=== PATIENT | male | born 1930 | race Caucasian/White ===

== ENCOUNTER → 2017-11-27 | Outpatient (CLI) | payer OTHER ==
[~2017-11-27] MED LIST: ALBUAER9 INH; AMLO5TAB3 PO; CHOL100010 PO; CLOP1TAB5 PO; DIGO0.1219 PO; DOCU5LIQ PO; FERR1TAB62 PO; FINA5TAB4 PO; FLM4 PO; GLIM4TAB2 PO; INSUINJ4 SC; ISOS120T5 PO; LCHC12280 TOP; LEVO75TA5 PO; LSX20 PO; LXP10 PO; MAGN400T6 PO; METF1TAB53 PO; METO50TA16 PO; NTRGSL/4 UT; OMEP20CA9 PO; SITA50TA PO; WARF5TAB7 PO
--- NOTE | 2017-11-27 09:36 | DIAGNOSTIC IMAGING REPORT ---
CT OF THE ABDOMEN AND PELVIS WITHOUT CONTRAST CLINICAL HISTORY: Nephrolithiasis. Enlarged prostate. COMPARISON STUDY: CT of the abdomen and pelvis September 09, 2014. Abdominal series September 10, 2014. TECHNIQUE: Axial images of the abdomen and pelvis were obtained without IV contrast. Images were reviewed in the axial, sagittal, and coronal planes. A dose lowering technique was utilized adhering to the principles of ALARA. FINDINGS: The heart is moderately enlarged. There is extensive coronary artery calcification. A trace right pleural effusion with pleural thickening is unchanged and likely chronic. Evaluation of the abdomen and pelvis is suboptimal on this unenhanced exam. There is no biliary ductal dilatation status post cholecystectomy. Unenhanced images of liver, spleen, adrenal glands and pancreas are unremarkable with exception of pancreatic glandular atrophy. There is no pancreatic ductal dilatation. No pneumatosis, free air or portal venous gas is present. There is no evidence for a bowel obstruction. There is no evidence for acute appendicitis. There is hyperdense material within the appendix. No enlarged abdominal or pelvic lymph nodes are present. There are no suspicious osseous lesions. Moderate vascular calcification is present. Multiple bilateral renal calculi measure up to 8 mm. Calculus burden has mildly increased exam of September 09, 2014. A few bladder calculi measure up to 9 mm. No ureteral calculi are present. There is no hydronephrosis or hydroureter. Sensitivity for detection of urothelial lesions is diminished on this unenhanced exam. This moderate irregular bladder wall thickening with trabeculation. Prostate is mildly enlarged. IMPRESSION: 1. Bilateral nephrolithiasis and several bladder calculi. No ureteral calculi or hydronephrosis. 2. Moderate irregular bladder wall thickening with trabeculations which suggests chronic bladder outlet obstruction. Mild enlargement of the prostate. Electronically signed by: Jah Lassiter M.D. 11/27/2017 9:34 AM Dictated Date/Time: 11/27/2017 9:26 AM
== END | disposition home or self-care (01) ==
LOC: C.CTS 09:14
PROVIDERS: ATTEND Urology
DX: N20.0 Calculus of kidney (principal); N40.0 Benign prostatic hyperplasia without lower urinary tract symptoms; R33.9 Retention of urine, unspecified; N21.0 Calculus in bladder; N32.89 Other specified disorders of bladder

== ENCOUNTER 2017-12-05 16:43 | Emergency (ER) | payer OTHER ==
[~2017-12-05] VITALS: Ht 175.3 cm; Wt 69.2 kg
--- NOTE | 2017-12-05 16:56 | EMERGENCY ROOM VISIT NOTE ---
History Report prepared by Pippa: Kimberley Yañez Under the Supervision of: Dr. Bin Lyons M.D. First contact with patient: 16:46 Stated Complaint: HEMATURIA History of Present Illness The patient is a 87 year old male who presents to the Emergency Room with complaints of persistent bleeding with urination beginning 4 hours ago. His daughter notes the patient had a cystogram performed by Dr. Kong this afternoon, and began bleeding with urination after the procedure. She notes he had a little blood with urination directly after the procedure, and began having much more bleeding once he got home and urinated a second time. The patient denies any clots in the blood and his daughter notes the blood was bright red in color. He denies any pain. The daughter states the patient takes Warfarin for Afib, and his levels have been good recently. She notes he does not take aspirin. The daughter reports the patient had the cystogram due to concern over kidney stones. 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 Source of History: patient, family (daughter) Onset: 4 hours ago Position: pelvis (penis) Quality: other (bleeding) Timing: other (persistent) Modifying Factors (Worsening): urination Note: Denies: any pain, clots in blood Review of Systems See HPI for pertinent positives and negatives. A total of ten systems were reviewed and were otherwise negative. Past Medical & Surgical Medical Problems: (1) c (2) i (3) mechanica ventilation (4) mechanical ventilation (5) RT sided pleural effusion Family History Noncontributory due to advanced age Social History Smoking Status: Never Smoker Alcohol Use: none Drug Use: none Marital Status: Housing Status: lives with family Occupation Status: retired Current/Historical Medications Scheduled Amlodipine (Norvasc), 2.5 MG PO BID Cholecalciferol (Vitamin D), 1,000 INTER.UNIT PO QAM Clopidogrel Bisulfate (Plavix), 75 MG PO QAM Digoxin (Digox), 0.125 MG PO DAILY Escitalopram Oxalate (Escitalopram Oxalate), 5 MG PO DAILY Ferrous Sulfate (Ferrous Sulfate), 325 MG PO BID Finasteride (Proscar), 5 MG PO DAILY Glimepiride (Glimepiride), 4 MG PO QAM Insulin Glargine (Lantus Solostar Pen), 20 UNITS SC HS Isosorbide Mononitrate Ext Rel (Imdur Ext Rel), 120 MG PO DAILY Levothyroxine Sodium (Levothyroxine Sodium), 75 MCG PO DAILY Magnesium Oxide (Mag-Ox), 400 MG PO BID Metformin Hcl (Glucophage Ext Rel), 1,000 MG PO DAILY Metoprolol Tartrate (Lopressor) (Lopressor), 50 MG PO TID Omeprazole (Prilosec), 20 MG PO DAILYBB Sitagliptin Phosphate (Januvia), 50 MG PO DAILY Tamsulosin HCl (Tamsulosin HCl), 0.4 MG PO DAILY Warfarin Sod (Jantoven), 5 MG PO 5XWK Warfarin Sod (Jantoven), 2.5 MG PO 2XWK Scheduled PRN Albuterol Sulfate (Proventil Hfa), 2 PUFFS INH Q6H PRN for SOB/Wheezing Docusate Sodium (Docusate Sodium), 10 ML PO DAILY PRN for Constipation Furosemide (Furosemide), 20 MG PO DAILY PRN for Weight Gain - 3# Or More Lactic Acid (Ammonium Lactate Cream 12%), 1 APPLN TOP BID PRN for dry skin Nitroglycerin (Nitrostat), 0.4 MG UT UD PRN for Chest Pain Allergies Coded Allergies: Pioglitazone (Verified Allergy, Unknown, vision problem, 09/09/14) Physical Exam Vital Signs Date Time Temp Pulse Resp B/P (MAP) Pulse Ox O2 Delivery O2 Flow Rate FiO2 12/05/17 18:56 88 14 143/75 98 12/05/17 17:27 36.4 82 14 155/83 96 Room Air 12/05/17 17:16 87 12/05/17 17:02 97 Room Air Physical Exam GENERAL: Awake, alert, well-appearing, in no distress HENT: Normocephalic, atraumatic. Oropharynx unremarkable. EYES: Normal conjunctiva. Sclera non-icteric. NECK: Supple. No nuchal rigidity. RESPIRATORY: Clear to auscultation. No wheezes. Normal respiratory effort. CARDIAC: Normal rate. Irregular rhythm. Extremities warm and well perfused. GI: Soft, non-distended. No tenderness to palpation. No rebound or guarding. No masses. : No testicular or penile tenderness. Clotted blood at the urethra w/o active bleeding; phimosis. No other skin lesions noted. RECTAL: Deferred. MUSCULOSKELETAL: Atraumatic. Chest examination reveals no tenderness. There is no CVA tenderness to palpation. LOWER EXTREMITIES: RLE BKA with prosthetic. LLE without significant edema. NEURO: Normal sensorium. No sensory or motor deficits noted. No facial droop. SKIN: Warm and dry. No rash or jaundice noted. Medical Decision & Procedures Laboratory Results 12/05/17 17:10 Red Blood Count 3.68, Mean Corpuscular Volume 94.0, Mean Corpuscular Hemoglobin 32.3, Mean Corpuscular Hemoglobin Concent 34.4, Mean Platelet Volume 11.3, Neutrophils (%) (Auto) 76.6, Lymphocytes (%) (Auto) 12.2, Monocytes (%) (Auto) 10.6, Eosinophils (%) (Auto) 0.4, Basophils (%) (Auto) 0.1, Neutrophils # (Auto ) 6.87, Lymphocytes # (Auto) 1.10, Monocytes # (Auto) 0.95, Eosinophils # (Auto ) 0.04, Basophils # (Auto) 0.01 12/05/17 17:10 Test 12/05/17 17:10 12/05/17 18:35 White Blood Count 8.98 K/uL (4.8-10.8) Red Blood Count 3.68 M/uL (4.7-6.1) Hemoglobin 11.9 g/dL (14.0-18.0) Hematocrit 34.6 % (42-52) Mean Corpuscular Volume 94.0 fL (80-100) Mean Corpuscular Hemoglobin 32.3 pg (25-34) Mean Corpuscular Hemoglobin Concent 34.4 g/dl (32-36) Platelet Count 180 K/uL (130-400) Mean Platelet Volume 11.3 fL (7.4-10.4) Neutrophils (%) (Auto) 76.6 % Lymphocytes (%) (Auto) 12.2 % Monocytes (%) (Auto) 10.6 % Eosinophils (%) (Auto) 0.4 % Basophils (%) (Auto) 0.1 % Neutrophils # (Auto) 6.87 K/uL (1.4-6.5) Lymphocytes # (Auto) 1.10 K/uL (1.2-3.4) Monocytes # (Auto) 0.95 K/uL (0.11-0.59) Eosinophils # (Auto) 0.04 K/uL (0-0.5) Basophils # (Auto) 0.01 K/uL (0-0.2) RDW Standard Deviation 44.7 fL (36.4-46.3) RDW Coefficient of Variation 13.0 % (11.5-14.5) Immature Granulocyte % (Auto) 0.1 % Immature Granulocyte # (Auto) 0.01 K/uL (0.00-0.02) Prothrombin Time 27.1 SECONDS (9.0-12.0) Prothromb Time International Ratio 2.6 (0.9-1.1) Activated Partial Thromboplast Time 33.3 SECONDS (21.0-31.0) Partial Thromboplastin Ratio 1.3 Anion Gap 6.0 mmol/L (3-11) Est Creatinine Clear Calc Drug Dose 60.3 ml/min Estimated GFR () 91.0 Estimated GFR (Non- 78.5 BUN/Creatinine Ratio 23.9 (10-20) Calcium Level 8.9 mg/dl (8.5-10.1) Total Bilirubin 0.6 mg/dl (0.2-1) Direct Bilirubin 0.2 mg/dl (0-0.2) Aspartate Amino Transf (AST/SGOT) 22 U/L (15-37) Alanine Aminotransferase (ALT/SGPT) 31 U/L (12-78) Alkaline Phosphatase 82 U/L (45-117) Total Protein 6.6 gm/dl (6.4-8.2) Albumin 3.4 gm/dl (3.4-5.0) Urine Color RED Urine Appearance TURBID (CLEAR) Urine pH 7.0 (4.5-7.5) Urine Specific [place] 1.020 (1.000-1.030) Urine Protein 2+ (NEG) Urine Glucose (UA) 3+ (NEG) Urine Ketones NEG (NEG) Urine Occult Blood 3+ (NEG) Urine Nitrite NEG (NEG) Urine Bilirubin NEG (NEG) Urine Urobilinogen POS (NEG) Urine Leukocyte Esterase TRACE (NEG) Urine RBC >30 /hpf (0-4) Urine WBC 10-30 /hpf (0-5) Urine Epithelial Cells >30 /lpf (0-5) Urine Bacteria NEG (NEG) Laboratory results reviewed by me Procedure I performed a 72 mm bladder scan. ED Course 1645: The patient was evaluated in room C7. A complete history and physical exam was performed. 1747: I performed a 72 mm bladder scan. 1802: I reevaluated the patient. Discussed results and discharge instructions: he and his daughter verbalized understanding and agreement. The patient is ready for discharge. Medical Decision Etiologies such as tumor, post-cystoscopy related bleeding, kidney stone, infection, supra-therapeutic INR, as well as others entertained. Patient presents from home experience hematuria after cystoscopy earlier today. Has a history of kidney stones, phimosis, and balanitis. Did receive a dose of Bactrim prior to leaving the office today prophylactically. Noted to have viable prostate on exam. Is on Coumadin for atrial fibrillation and Plavix. Evidently after the procedure about 4 hours ago urinated once with some blood and then bright red blood at home per daughter. Bleeding stopped upon arrival. He denies any pain. States several weeks ago his blood levels were fine. Denies history of similar. Repeat blood count and INR completed here. Bladder scan completed to exclude retention. No evidence of this. Doubt this is acute infection or kidney stone. Likely postprocedural related to his anticoagulation at platelet use. Urinated here with some hematuria but emptying his bladder. Discussed option of [place] with patient and daughter and they wished to defer at this time. Did give return precautions. Feel that outpatient follow-up is reasonable at this time with return precautions for retention or prolonged significant bleeding. Patient and daughter were agreeable with this plan. Medication Reconcilliation Current Medication List: was personally reviewed by me Blood Pressure Screening Patient's blood pressure: Elevated blood pressure Blood pressure disposition: Referred to PCP Impression Primary Impression: Hematuria Scribe Attestation The scribe's documentation has been prepared under my direction and personally reviewed by me in its entirety. I confirm that the note above accurately reflects all work, treatment, procedures, and medical decision making performed by me. Departure Information Dispostion Home / Self-Care Referrals Kimberley Reid M.D. (PCP) Forms HOME CARE DOCUMENTATION FORM, IMPORTANT VISIT INFORMATION, WORK / SCHOOL INSTRUCTIONS Additional Instructions If you have concerns about retaining urine please return for reevaluation. Due to the procedure and your anticoagulation you are bleeding when you urinate. If you feel that this bleeding will not stop or he began to experience symptoms such as weakness lightheadedness or fatigue please return for reevaluation to make sure you have not lost much blood. Bleeding with urination should stop fairly shortly after. Would recommend maintaining close contact with urology over the next day. If at any time you have concerns again please feel free to return here for reevaluation. Problem Qualifiers Primary Impression: Hematuria Hematuria type: gross Qualified Codes: R31.0 - Gross hematuria
[2017-12-05 17:02] VITALS: O2SAT 97
[2017-12-05 17:24] LABS: BASO % 0.1 %; BASO ABS # 0.01 K/uL (0-0.2); EOS % 0.4 %; EOS ABS # 0.04 K/uL (0-0.5); HEMATOCRIT 34.6 % (42-52); HEMOGLOBIN 11.9 g/dL (14.0-18.0); IG# 0.01 K/uL (0.00-0.02); LYMPH % 12.2 %; MEAN CORPUSCULAR HEMOGLOBIN 32.3 pg (25-34); MEAN CORPUSCULAR HGB CONC 34.4 g/dl (32-36); MEAN PLATELET VOLUME 11.3 fL (7.4-10.4); MONO % 10.6 %; MONO ABS # 0.95 K/uL (0.11-0.59); NEUT % 76.6 %; NEUT ABS # 6.87 K/uL (1.4-6.5); PLATELET COUNT 180 K/uL (130-400); RED CELL DISTRIBUTION WIDTH SD 44.7 fL (36.4-46.3); WHITE BLOOD COUNT 8.98 K/uL (4.8-10.8)
[2017-12-05 17:27] VITALS: TEMP 36.4; Ht 175.3 cm; Wt 69.2 kg
[2017-12-05 17:32] LABS: INR 2.6 (0.9-1.1); PTT PATIENT 33.3 SECONDS (21.0-31.0)
[2017-12-05 17:45] LABS: ALBUMIN 3.4 gm/dl (3.4-5.0); CALCIUM 8.9 mg/dl (8.5-10.1); CREATININE 0.86 mg/dl (0.60-1.40); POTASSIUM 4.2 mmol/L (3.5-5.1); TOTAL PROTEIN 6.6 gm/dl (6.4-8.2)
[2017-12-05 18:56] VITALS: BP 143/75; PULSE 88; O2SAT 98
== END 2017-12-05 18:56 | disposition home or self-care (01) ==
LOC: EDBD 16:43 → C.EDC 16:44
DX: R31.9 Hematuria, unspecified (principal); R03.0 Elevated blood-pressure reading, without diagnosis of hypertension; I48.91 Unspecified atrial fibrillation; Z98.890 Other specified postprocedural states; Z87.442 Personal history of urinary calculi; Z79.01 Long term (current) use of anticoagulants; Z79.4 Long term (current) use of insulin; Z79.899 Other long term (current) drug therapy; Z88.8 Allergy status to other drugs, medicaments and biological substances

== ENCOUNTER 2018-11-14 10:28 | Inpatient (IN) ==
--- OUTSIDE RECORDS SUMMARY | 2018-11-14 10:31 | External Medical Summary | Continuity of Care Document ---
:1930 Author Name Manny Spencer, Provider Address Unavailable Unavailable , Care Team Providers Name Role Phone WisamgagandeepAna lopez PA-C Unavailable [email or web address] Clau Spencer, Anthony Minor Unavailable [email or web address] Unavailable Unavailable Unavailable Unavailable Assessments Assessed Problems:Former smoker Problems Anxiety disorder (300.00) (F41.9) Chronic respiratory failure (518.83) (J96.10) Arthritis (716.90) (M19.90) Diabetes mellitus (250.00) (E11.9) Type 2 diabetes mellitus (250.00) (E11.9) Primary pulmonary hypertension (416.0) (I27.0) CAD (coronary artery disease) (414.00) (I25.10) Cath Stent Placement Hypercholesterolemia (272.0) (E78.00) Ischemic cardiomyopathy (414.8) (I25.5) Permanent atrial fibrillation (427.31) (I48.2) Hypertension (401.9) (I10) Calculus of kidney (592.0) (N20.0) Retention of urine (788.20) (R33.9) Nocturia (788.43) (R35.1) Tinea (110.9) (B35.9) Enlarged prostate without lower urinary tract symptoms (luts ) (600.00) (N40.0) Former smoker (V15.82) (Z87.891) Non-ST elevation (NSTEMI) myocardial infarction (410.70) (I2 1.4) Phimosis (605) (N47.1) Allergies and Adverse Reactions Actos TABS (Allergy) Medications Glimepiride 4 MG Oral Tablet; TAKE 1 TABLET TWICE DAILY. Refills: 0 Levothyroxine Sodium 75 MCG Oral Tablet; TAKE 1 TABLET DAILY . Refills: 0 Digoxin 125 MCG Oral Tablet; Take one tablet daily Real Olguin Start: 26-Oct-2010 Quantity: 30 Refills: 6 Metoprolol Succinate ER 50 MG Oral Table t Extended Release 24 Hour; Take 1 tablet daily Tj Olguin Start: 24-Jan-2016 Quantity: 90 Refills: 3 metFORMIN HCl ER (OSM) 500 MG Oral Table t Extended Release 24 Hour; take 1 tablet by mouth once daily Refills: 0 Lexapro 10 MG Oral Tablet; take 1 tablet by mouth once daily Start: 16-Nov-2011 Refills: 0 Lisinopril 2.5 MG Oral Tablet; TAKE 1 TABLET DAILY. Quantity: 90 Refills: 3 Iron 325 (65 Fe) MG Oral Tablet; TAKE 1 TABLET DAILY DIRE CTED. Refills: 0 Finasteride 5 MG Oral Tablet; TAKE 1 TABLET DAILY. Quantity: 90 Refills: 0 Tamsulosin HCl - 0.4 MG Oral Capsule; TAKE 1 CAPSULE Daily Quantity: 90 Refills: 3 Warfarin Sodium 5 MG Oral Tablet; TAKE DIRECTED. Refills: 0 Mag-Ox 400 TABS; TAKE 1 TABLET DAILY. Refills: 0 Januvia 50 MG Oral Tablet; TAKE 1 TABLET DAILY. LEANDRO Callahan Start: 07-Nov-2011 Quantity: 30 Refills: 5 Vitamin D 1000 UNIT Oral Tablet; TAKE 1 TABLET DAILY. Refills: 0 Lipitor 80 MG Oral Tablet; TAKE 1 TABLET DAILY. Quantity: 90 Refills: 3 Plavix 75 MG Oral Tablet; TAKE 1 TABLET DAILY. Refills: 0 Omeprazole 20 MG Oral Capsule Delayed Release; TAKE 1 CAPSULE Daily LEADNRO Callahan Start: 23-Jan-2011 Quantity: 30 Refills: 5 Procedures History of Cholecystectomy Status: Compl eted History of Tonsillectomy Status: Complet ed History of Thoracoscopy (Therapeutic) With Pleurodesis Status: Completed History of Amputation Of Leg Below Knee Status: Completed Cath Stent Placement Immunizations Influenza On: 2010 Pneumococcal polysaccharide vaccine, 23 valent On: 2010 Td On: 2010 Family History Father Family history of Father At Age ___ Status: Active Mother Family history of Mother At Age ___ Status: Active Sister Family history of Sister At Age ___ Status: Active Unknown Family Member Family history of Cancer Status: Active Comments: Famil y History Family history of Diabetes Mellitus (V18.0) Status: Active Comments: Family History Family history of Father At Age ___ Status: Active Comments: Family History Social History - Smoking Status Former smoker Interventions Labs/Procedures/ImagingTobacco Use Screening; Done: 20 Mar 2018 Discussion/SummaryThe patient is stable from a cardiovascular standpoint. Fortunately, his coronary artery disease remains quiescent his current medical regimen. No changes were made today.Duration of the visit was greater than 25 minutes. More than 50 percent of the time was spent in education and counseling. Plan of Treatment Planned Observations Planned Goals not documented Results No Known Results Results not documented Encounters Appointment; Aaron Kong M.D. 05-Dec-2017 12:45 Encounter Diagnosis: Problem not documented Appointment; Urology, Room 8 05-Dec-2017 12:30 Encounter Diagnosis: Problem not documented Appointment; Aaron Kong M.D. 06-Nov-2017 10:00 Encounter Diagnosis: Problem not documented Appointment; Anthony Olguin M.D. 29-Aug-2017 11:30 Encounter Diagnosis: Problem not documented Appointment; Anthony Olguin M.D. 27-Feb-2017 11:30 Encounter Diagnosis: Problem not documented Appointment; Anthony Olguin M.D. 20-Mar-2018 13:30 Encounter Diagnosis: Problem not documented
[2018-11-14 10:57] LABS: Basophils # (auto) 0.01 K/uL (0-0.2); Basophils % (auto) 0.1 %; Hematocrit (blood only) 35.8 % (42-52); Immature Granulocytes # (auto) 0.02 K/uL (0.00-0.02); Immature Granulocytes % (auto) 0.2 %; Lymphocytes # (auto) 0.72 K/uL (1.2-3.4); Lymphocytes % (auto) 7.2 %; Mean Corpuscular Hgb Conc 33.5 g/dL (32-36); Mean Platelet Volume 11.8 fL (7.4-10.4); Monocytes # (auto) 0.64 K/uL (0.11-0.59); Monocytes % (auto) 6.4 %; Neutrophils # (auto) 8.67 K/uL (1.4-6.5); Neutrophils % (auto) 86.1 %; Platelet Count 181 K/uL (130-400); RDW Coefficient of Variation 13.4 % (11.5-14.5); RDW Standard Deviation 46.4 fL (36.4-46.3); Red Blood Count 3.81 M/uL (4.7-6.1); White Blood Count 10.06 K/uL (4.8-10.8)
[2018-11-14 11:07] LABS: INR 2.1 (0.9-1.1); Partial Thromboplastin Ratio 1.1; Partial Thromboplastin Time 30.4 Seconds (21.0-31.0); Prothrombin Time 20.6 Seconds (9.0-12.0)
[2018-11-14 11:23] LABS: Alanine Aminotransferase 33 U/L (12-78); Albumin Level 3.5 gm/dl (3.4-5.0); Aspartate Aminotransferase 26 U/L (15-37); BUN Creatinine Ratio 26.7 (10-20); Blood Urea Nitrogen 19 mg/dl (7-18); Carbon Dioxide 30 mmol/L (21-32); Chloride 104 mmol/L (98-107); Creatinine Clr Calc Pharmacy 59.8 ml/min; Est GFR (African American) 97.8; Est GFR (Non-African American) 84.4; Glucose 155 mg/dl (70-99); Potassium 4.6 mmol/L (3.5-5.1); Sodium 141 mmol/L (136-145)
[2018-11-14 11:28] LABS: Albumin Globulin Ratio 1.2 (0.9-2); Alkaline Phosphatase 96 U/L (45-117); Bilirubin,Total 0.6 mg/dl (0.2-1); Globulin 2.9 gm/dl (2.5-4.0); Total Protein 6.4 gm/dl (6.4-8.2); Troponin I < 0.015 ng/ml (0-0.045)
[2018-11-14] MEDS ORDERED: ALBUT/IPRATROP 3MG/0.5MG NEB 3 ML VIAL NEB STA ×2 (11:38→15:42)
--- NOTE | 2018-11-14 11:53 | XRay Report ---
XR chest 1V portable CLINICAL HISTORY: Shortness of breath. COMPARISON STUDY: Chest radiograph October 24, 2014. FINDINGS: Old right-sided rib deformities are noted. There is no pneumothorax. There may be a trace r ight pleural effusion. This may be chronic. Right hemithorax volume loss is unchanged. Postoperative findings within the right lung apex are noted. Cardiomegaly is noted without evidence for pulmonary e moe. IMPRESSION: No acute cardiopulmonary findings. No change in appearance of the chest. Trace right ple ural effusion which may be chronic. Electronically signed by: Jah Lassiter M.D. 11/14/2018 11:52 AM
[2018-11-14] MEDS ORDERED: OPTIRAY 320 125ml IV PRN (13:26)
--- NOTE | 2018-11-14 13:41 | CT Scan Report ---
CT ANGIOGRAM OF THE CHEST CLINICAL HISTORY: Dyspnea. COMPARISON STUDY: Chest x-ray dated 11/14/2018. Chest CT dated 09/09/2014. TECHNIQUE: Following the IV administration of 79 cc of Optiray 320, CT angiogram of the chest was per formed from the upper abdomen to the thoracic inlet utilizing the pulmonary embolus protocol. Images are reviewed in the axial, sagittal, and coronal planes. 3-D MIPS images are created and assessed. IV contrast was administered without complication. A dose lowering technique was utilized adhering to the principles of ALARA. The examination is degraded by streak artifact from the arms which could not elevated above the chest. CT DOSE: 330.40 mGy.cm FINDINGS: Thyroid: Imaged portions of the thyroid gland are normal in size and attenuation. Thoracic aorta: There is atherosclerotic calcification of the thoracic aorta, which is normal in [place] and demonstrates standard 3-vessel arch anatomy. No dissection is seen. Pulmonary vasculature: The pulmonary trunk is normal in caliber. There are no filling defects identif ied in main, lobar, or segmental pulmonary branches to suggest pulmonary embolus. Heart: The heart is enlarged and without pericardial effusion. Acquired arteries are densely calcifie d. Lungs and pleural spaces: There is hyperdense material identified throughout the right pleural space with associated pleural thickening, likely related to previous pleurodesis. Postoperative change and scarring is seen at the right apex and the anterior right lung base. There is diffuse subpleural reti culation. No airspace consolidation or pleural effusion is identified. Minimal secretions are noted i n the upper trachea. The trachea and central airways are otherwise clear. Mediastinum: There is no mediastinal lymphadenopathy. Kimmy: Clear. Axillae: There is no axillary lymphadenopathy. Upper abdomen: Cholecystectomy clips are noted. There is mild intrahepatic biliary ductal dilatation. Skeletal structures: The skeletal structures are osteopenic. 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 Arthritic change is seen in the shoulders. There are healed rig ht-sided rib fractures. No lytic or blastic bony lesions are seen. Soft tissues: Gynecomastia is noted. IMPRESSION: 1. There is no evidence of pulmonary embolus in the main, lobar, or segmental pulmonary arteries. 2. There is no airspace consolidation or pleural effusion. 3. Cardiomegaly. 4. Chronic parenchymal changes as above. Electronically signed by: Pawan Ryan M.D. 11/14/2018 1:39 PM
[2018-11-14] MEDS ORDERED: METOPROLOL SUCC 50MG EXT REL TAB PO STA (15:27)
[2018-11-14] MEDS ORDERED: methylPREDNISolone 125 MG/2 ML VIAL IV STA (15:42)
[2018-11-14] MEDS ORDERED: DOXYCYCLINE HYCLATE 100 MG in DEXTROSE 5% 100 ML IV STA (15:42)
--- NOTE | 2018-11-14 15:49 | Emergency Department Note ---
Entered by Lorna Bardales acting as a scribe for Memo Zamudio MD History of Present Illness General Chief complaint: Shortness of Breath/Dyspnea Stated complaint: chest pain Time Seen by Provider: 11/14/18 11:28 Source: patient and family Mode of arrival: EMS Limitations: no limitations History of Present Illness Onset (ago): day(s) 2 Location: chest Radiation: non-radiation Pain Consistency: + constant Relieved By: + none Exacerbated By: + movement (and exertion) Associated symptoms: + other (-urinary symptoms); no chest pain Treatments prior to arrival: none The patient is an 89 year old male who presents to the ED with complaints of shortness of breath since last night. He is accompanied by his daughter. She states that 2 days ago, "he was fine". Exertion and movement worsens his breathing. She denies him having any history of asthma or COPD. He is not normally on Oxygen. He does take daily Coumadin. The patient denies any recent chest pain or urinary symptoms. His daughter states he seems to have a lot of mucous in his chest. Home Medications Home Medications Medication Instructions Recorded Confirmed Type atorvastatin 80 mg PO DAILY 11/14/18 11/14/18 History cholecalciferol (vitamin D3) 1,000 unit PO DAILY 11/14/18 11/14/18 History [Vitamin D3] clopidogrel 75 mg PO QAM 11/14/18 11/14/18 History digoxin [Digitek] 125 mcg PO DAILY 11/14/18 11/14/18 History ferrous sulfate [iron] 325 mg PO DAILY 11/14/18 11/14/18 History finasteride 5 mg PO QAM 11/14/18 11/14/18 History glimepiride 8 mg PO QAM 11/14/18 11/14/18 History levothyroxine 75 mcg PO QAM 11/14/18 11/14/18 History linagliptin [Tradjenta] 5 mg PO DAILY 11/14/18 11/14/18 History lisinopril 2.5 mg PO DAILY 11/14/18 11/14/18 History magnesium oxide 400 mg PO DAILY 11/14/18 11/14/18 History metformin 500 mg PO DAILY 11/14/18 11/14/18 History metoprolol succinate 50 mg PO DAILY 11/14/18 11/14/18 History tamsulosin 0.4 mg PO DAILY 11/14/18 11/14/18 History warfarin [Jantoven] 2.5 mg PO SUTUTHSA 11/14/18 11/14/18 History warfarin [Jantoven] 5 mg PO MOWEFR 11/14/18 11/14/18 History Allergies Allergy/AdvReac Type Severity Reaction Status Date / Time pioglitazone Allergy Unknown vision Verified 11/14/18 11:24 problem Past Med/Surg History Medical History Hx of right BKA (Chronic) PAD (peripheral artery disease) (Chronic) Hypertension (Chronic) CAD (coronary artery disease) (Chronic) 08/2009-RCA stent 10/2014-LAD stent Chronic atrial fibrillation (Chronic) Ischemic cardiomyopathy (Chronic) Hypothyroidism (Chronic) DM type 2 (diabetes mellitus, type 2) (Chronic) Surgical History History of thoracic surgery (Chronic) S/P VATS with talc pleurodesis S/P cholecystectomy (Chronic) History of cataract surgery (Chronic) Family History Mother Diabetes Social History Preferred Language: Vietnamese Communication Ability: Effective Beliefs That Will Affect Care: None Current Living Situation: Family Current Living Situation Comment: Lives with and daughter Other Information That Helps Us Care for You: No Feels Safe at Home: No Is there a partner from a previous relationship who is making you feel unsafe now?: No Any Concerns about Your Family Situation: No Would You Like to Speak to Someone About Your Situation: No Smoking Status: Former smoker Hx Alcohol Use: No Hx Substance Use: No Review of Systems See HPI for pertinent positives & negatives. and A total of 10 systems reviewed and were otherwise negative Physical Exam Vital Signs Vital Signs - 24 hr 11/14/18 10:33 11/14/18 10:37 11/14/18 11:03 Temperature 37.0 C Temperature Source Oral Sepsis Recent Fever Within 48 Hours No Sepsis New/Unexplained Change in Mental Status No Sepsis Action Taken by Nursing No Action Required Pulse Rate 125 H Pulse Rate [Exercises] Pulse Rate [Left Finger] Pulse Rhythm Regular Pulse Rhythm [Left Finger] Pulse Strength Normal Pulse Strength [Left Finger] Respiratory Rate 30 H Respiratory Rate [Exercises] Respiratory Effort / Characteristics Labored Respiratory Depth Normal Respiratory Pattern Irregular Blood Pressure 155/89 H Blood Pressure [Right Arm] Blood Pressure Mean 111 Blood Pressure Mean [Right Arm] Blood Pressure Position Sitting Blood Pressure Position [Right Arm] Pulse Oximetry 98 100 Pulse Oximetry [Exercises] Oxygen Delivery Method Room Air Nasal Cannula Room Air Oxygen Flow Rate 2 11/14/18 12:11 11/14/18 12:15 11/14/18 14:34 Temperature Temperature Source Sepsis Recent Fever Within 48 Hours Sepsis New/Unexplained Change in Mental Status Sepsis Action Taken by Nursing Pulse Rate Pulse Rate [Exercises] Pulse Rate [Left Finger] 110 H 110 H 105 H Pulse Rhythm Pulse Rhythm [Left Finger] Regular Pulse Strength Pulse Strength [Left Finger] Normal Respiratory Rate 10 L 20 22 Respiratory Rate [Exercises] Respiratory Effort / Characteristics Non-Labored Spontaneous Non-Labored Spontaneous Non-Labored Spontaneous Respiratory Depth Normal Normal Respiratory Pattern Regular Blood Pressure Blood Pressure [Right Arm] 101/67 152/85 H Blood Pressure Mean Blood Pressure Mean [Right Arm] 78 107 Blood Pressure Position Blood Pressure Position [Right Arm] Lying Lying Pulse Oximetry 99 98 100 Pulse Oximetry [Exercises] Oxygen Delivery Method Nasal Cannula Nebulizer Nasal Cannula Oxygen Flow Rate 4 2 11/14/18 15:27 Temperature Temperature Source Sepsis Recent Fever Within 48 Hours Sepsis New/Unexplained Change in Mental Status Sepsis Action Taken by Nursing Pulse Rate Pulse Rate [Exercises] 155 H Pulse Rate [Left Finger] Pulse Rhythm Pulse Rhythm [Left Finger] Pulse Strength Pulse Strength [Left Finger] Respiratory Rate Respiratory Rate [Exercises] 28 H Respiratory Effort / Characteristics Respiratory Depth Respiratory Pattern Blood Pressure Blood Pressure [Right Arm] Blood Pressure Mean Blood Pressure Mean [Right Arm] Blood Pressure Position Blood Pressure Position [Right Arm] Pulse Oximetry Pulse Oximetry [Exercises] 75 L Oxygen Delivery Method Room Air Oxygen Flow Rate GENERAL: Awake, alert, fatigued-appearing, in no distress HENT: Normocephalic, atraumatic. Oropharynx with dry mucous membranes and otherwise unremarkable. EYES: Normal conjunctiva. Sclera non-icteric. NECK: Supple. No nuchal rigidity. FROM. No JVD. RESPIRATORY: Diminished breath sounds throughout with scant wheeze. CARDIAC: Tachycardic rate, irregular rhythm. Extremities warm and well perfused. Pulses equal. ABDOMEN: Soft, non-distended. No tenderness to palpation. No rebound or guarding. No masses. RECTAL: Deferred. MUSCULOSKELETAL: Chest examination reveals no tenderness. The back is symmetrical on inspection without obvious abnormality. There is no CVA tenderness to palpation. No joint edema. LOWER EXTREMITIES: Right leg BKA. No edema. No discoloration. NEURO: Normal sensorium. No sensory or motor deficits noted. SKIN: No rash or jaundice noted. Course 1137: The patient was evaluated in room C9 and a complete history and physical were performed. 1315: I reevaluated the patient. His lung sounds are better and he is resting comfortably. 1356: I discussed his results and my recommendation he remain in the hospital for further evaluation and agreement and he verbalized complete understanding and agreement. 1449: I discussed the patients case [facility] The patient will be further evaluated. Consultations Consultation #1: I discussed the patients case [facility] The patient will be further evaluated. Time: 14:49 Administered Medications Digoxin (Lanoxin) 0.125 mg PO DAILY@1600 COUNT INCLUDES THE [facility] Stop: 12/14/18 19:29 Last Admin: 11/14/18 20:33 Dose: 0.125 mg Documented by: [id number] Insulin Aspart (Novolog Flexpen) 0 units SC ACHS COUNT INCLUDES THE [facility] Stop: 12/14/18 20:59 Last Admin: 11/14/18 20:37 Dose: 5 units Documented by: [id number] Cosigned by: [id number] Warfarin Sodium (Coumadin) 2.5 mg PO SuTuThSa@1600 COUNT INCLUDES THE [facility] Stop: 12/14/18 19:59 Last Admin: 11/14/18 20:34 Dose: 2.5 mg Documented by: [id number] Discontinued Medications Albuterol (Duoneb) 3 ml NEB NOW STA Stop: 11/14/18 11:39 Last Admin: 11/14/18 12:11 Dose: 3 ml Documented by: [id number] Doxycycline Hyclate 100 mg/ (Dextrose) 110 mls @ 50 mls/hr IV NOW STA Stop: 11/14/18 17:53 Last Infusion: 11/14/18 23:21 Dose: 0 mls/hr Documented by: [id number] Admin: 11/14/18 16:43 Dose: 50 mls/hr Documented by: [id number] Sodium Chloride (Nss 1000ml) 500 mls @ 999 mls/hr IV .Q31M ONE Stop: 11/14/18 16:35 Last Infusion: 11/14/18 18:24 Dose: 0 mls/hr Documented by: [id number] Admin: 11/14/18 16:43 Dose: 999 mls/hr Documented by: [id number] Insulin Glargine (Lantus Solostar Pen) 10 units SQ NOW STA Stop: 11/15/18 00:02 Last Admin: 11/15/18 00:22 Dose: 10 units Documented by: [id number] Cosigned by: [id number] Ioversol (Optiray 320 125ml) 79 ml IV ONCE PRN PRN Reason: Interaction Checking Stop: 11/18/18 13:25 Last Admin: 11/14/18 13:26 Dose: 79 ml Documented by: [id number] Methylprednisolone (Solumedrol) 125 mg IV NOW STA Stop: 11/14/18 15:43 Last Admin: 11/14/18 16:43 Dose: 125 mg Documented by: [id number] Metoprolol Succinate (Toprol Xl) 50 mg PO NOW STA Stop: 11/14/18 15:28 Last Admin: 11/14/18 15:43 Dose: 50 mg Documented by: [id number] Medical Decision Making Differential Diagnosis Differential diagnoses includes but is not limited to pneumonia, bronchitis, COPD/Asthma exacerbation, pneumothorax, pulmonary embolism, congestive heart failure, acute coronary syndrome. Medical Records Attestation: I reviewed the patient's medical records. Home Medications Current Medication List: was personally reviewed by me Laboratory Data Attestation: I reviewed the patient's lab results. Result diagrams: 11/14/18 10:42 11/14/18 10:42 Lab Results 11/14/18 11/14/18 11/14/18 Range/Units 10:42 10:42 10:42 WBC 10.06 (4.8-10.8) K/uL RBC 3.81 L (4.7-6.1) M/uL Hgb 12.0 L (14.0-18.0) g/dL Hct 35.8 L (42-52) % MCV 94.0 (80-100) fL MCH 31.5 (25-34) pg MCHC 33.5 (32-36) g/dL RDW Std Deviation 46.4 H (36.4-46.3) fL RDW Coeff of Kelvin 13.4 (11.5-14.5) % Plt Count 181 (130-400) K/uL MPV 11.8 H (7.4-10.4) fL Immature Gran % (Auto) 0.2 % Neut % (Auto) 86.1 % Lymph % (Auto) 7.2 % [place]iebach % (Auto) 6.4 % Eos % (Auto) 0.0 % Baso % (Auto) 0.1 % Immature Gran # (Auto) 0.02 (0.00-0.02) K/uL Neut # (Auto) 8.67 H (1.4-6.5) K/uL Lymph # (Auto) 0.72 L (1.2-3.4) K/uL [place] # (Auto) 0.64 H (0.11-0.59) K/uL Eos # (Auto) 0.00 (0-0.5) K/uL Baso # (Auto) 0.01 (0-0.2) K/uL PT 20.6 H (9.0-12.0) Seconds INR 2.1 H (0.9-1.1) APTT 30.4 (21.0-31.0) Seconds PTT Ratio 1.1 Sodium 141 (136-145) mmol/L Potassium 4.6 (3.5-5.1) mmol/L Chloride 104 (98-107) mmol/L Carbon Dioxide 30 (21-32) mmol/L Anion Gap 7.0 (3-11) BUN 19 H (7-18) mg/dl Creatinine 0.71 (0.6-1.4) mg/dl Est Cr Clr Drug Dosing 59.8 ml/min Est GFR ( Amer) 97.8 Est GFR (Non-Af Amer) 84.4 BUN/Creatinine Ratio 26.7 H (10-20) Glucose 155 H (70-99) mg/dl Calcium 9.0 (8.5-10.1) mg/dl Total Bilirubin 0.6 (0.2-1) mg/dl AST 26 (15-37) U/L ALT 33 (12-78) U/L Alkaline Phosphatase 96 (45-117) U/L Troponin I < 0.015 (0-0.045) ng/ml NT-Pro-B Natriuret Pep (0-1800) pg/ml Total Protein 6.4 (6.4-8.2) gm/dl Albumin 3.5 (3.4-5.0) gm/dl Globulin 2.9 (2.5-4.0) gm/dl Albumin/Globulin Ratio 1.2 (0.9-2) Urine Color Urine Appearance (Clear) Urine pH (4.5-7.5) Ur Specific Wright (1.000-1.030) Urine Protein (Negative) Urine Glucose (UA) (Negative) Urine Ketones (Negative) Urine Blood (Negative) Urine Nitrite (Negative) Urine Bilirubin (Negative) Urine Urobilinogen (Negative) Ur Leukocyte Esterase (Negative) Urine WBC (Auto) (0-5) /hpf Urine RBC (Auto) (0-4) /hpf U Hyaline Cast (Auto) (0-5) /lpf U Epithel Cells (Auto) (0-5) /lpf Urine Bacteria (Auto) (Negative) Urine Yeast (None Prsent) 11/14/18 11/14/18 Range/Units 10:42 16:10 WBC (4.8-10.8) K/uL RBC (4.7-6.1) M/uL Hgb (14.0-18.0) g/dL Hct (42-52) % MCV (80-100) fL MCH (25-34) pg MCHC (32-36) g/dL RDW Std Deviation (36.4-46.3) fL RDW Coeff of Kelvin (11.5-14.5) % Plt Count (130-400) K/uL MPV (7.4-10.4) fL Immature Gran % (Auto) % Neut % (Auto) % Lymph % (Auto) % Ziebach % (Auto) % Eos % (Auto) % Baso % (Auto) % Immature Gran # (Auto) (0.00-0.02) K/uL Neut # (Auto) (1.4-6.5) K/uL Lymph # (Auto) (1.2-3.4) K/uL [place] # (Auto) (0.11-0.59) K/uL Eos # (Auto) (0-0.5) K/uL Baso # (Auto) (0-0.2) K/uL PT (9.0-12.0) Seconds INR (0.9-1.1) APTT (21.0-31.0) Seconds PTT Ratio Sodium (136-145) mmol/L Potassium (3.5-5.1) mmol/L Chloride (98-107) mmol/L Carbon Dioxide (21-32) mmol/L Anion Gap (3-11) BUN (7-18) mg/dl Creatinine (0.6-1.4) mg/dl Est Cr Clr Drug Dosing ml/min Est GFR ( Amer) Est GFR (Non-Af Amer) BUN/Creatinine Ratio (10-20) Glucose (70-99) mg/dl Calcium (8.5-10.1) mg/dl Total Bilirubin (0.2-1) mg/dl AST (15-37) U/L ALT (12-78) U/L Alkaline Phosphatase (45-117) U/L Troponin I (0-0.045) ng/ml NT-Pro-B Natriuret Pep 1855 H (0-1800) pg/ml Total Protein (6.4-8.2) gm/dl Albumin (3.4-5.0) gm/dl Globulin (2.5-4.0) gm/dl Albumin/Globulin Ratio (0.9-2) Urine Color Yellow Urine Appearance Turbid A (Clear) Urine pH 6.0 (4.5-7.5) Ur Specific Wright > 1.045 H (1.000-1.030) Urine Protein Negative (Negative) Urine Glucose (UA) Negative (Negative) Urine Ketones 1+ H (Negative) Urine Blood 1+ H (Negative) Urine Nitrite Negative (Negative) Urine Bilirubin Negative (Negative) Urine Urobilinogen Negative (Negative) Ur Leukocyte Esterase 3+ H (Negative) Urine WBC (Auto) >30 H (0-5) /hpf Urine RBC (Auto) 5-10 H (0-4) /hpf U Hyaline Cast (Auto) 0 (0-5) /lpf U Epithel Cells (Auto) 10-20 H (0-5) /lpf Urine Bacteria (Auto) Negative (Negative) Urine Yeast Present A (None Prsent) Imaging Data Radiologist's Impression: Radiology results as stated below per my review and the radiologist's interpretation: XR chest 1V portable CLINICAL HISTORY: Shortness of breath. COMPARISON STUDY: Chest radiograph October 24, 2014. FINDINGS: Old right-sided rib deformities are noted. There is no pneumothorax. There may be a trace right pleural effusion. This may be chronic. Right hemithorax volume loss is unchanged. Postoperative findings within the right lung apex are noted. Cardiomegaly is noted without evidence for pulmonary edema. IMPRESSION: No acute cardiopulmonary findings. No change in appearance of the chest. Trace right pleural effusion which may be chronic. Electronically signed by: Jah Lassiter M.D. 11/14/2018 11:[address] ANGIOGRAM OF THE CHEST CLINICAL HISTORY: Dyspnea. COMPARISON STUDY: Chest x-ray dated 11/14/2018. Chest CT dated 09/09/2014. TECHNIQUE: Following the IV administration of 79 cc of Optiray 320, CT angiogram of the chest was performed from the upper abdomen to the thoracic inlet utilizing the pulmonary embolus protocol. Images are reviewed in the axial, sagittal, and coronal planes. 3-D MIPS images are created and assessed. IV contrast was administered without complication. A dose lowering technique was utilized adhering to the principles of ALARA. The examination is degraded by s treak artifact from the arms which could not elevated above the chest. CT DOSE: 330.40 mGy.cm FINDINGS: Thyroid: Imaged portions of the thyroid gland are normal in size and attenuation. Thoracic aorta: There is atherosclerotic calcification of the thoracic aorta, which is normal in caliber and demonstrates standard 3-vessel arch anatomy. No dissection is seen. Pulmonary vasculature: The pulmonary trunk is normal in caliber. There are no filling defects identified in main, lobar, or segmental pulmonary branches to suggest pulmonary embolus. Heart: The heart is enlarged and without pericardial effusion. Acquired arteries are densely calcified. Lungs and pleural spaces: There is hyperdense material identified throughout the right pleural space with associated pleural thickening, likely related to previous pleurodesis. Postoperative change and scarring is seen at the right apex and the anterior right lung base. There is diffuse subpleural reticulation. No airspace consolidation or pleural effusion is identified. Minimal secretions are noted in the upper trachea. The trachea and central airways are otherwise clear. Mediastinum: There is no mediastinal lymphadenopathy. Kimmy: Clear. Axillae: There is no axillary lymphadenopathy. Upper abdomen: Cholecystectomy clips are noted. There is mild intrahepatic biliary ductal dilatation. Skeletal structures: The skeletal structures are osteopenic. 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 Arthritic change is seen in the shoulders. There are healed right-sided rib fractures. No lytic or blastic bony lesions are seen. Soft tissues: Gynecomastia is noted. IMPRESSION: 1. There is no evidence of pulmonary embolus in the main, lobar, or segmental pulmonary arteries. 2. There is no airspace consolidation or pleural effusion. 3. Cardiomegaly. 4. Chronic parenchymal changes as above. Electronically signed by: Pawan Ryan M.D. 11/14/2018 1:39 PM ECG Data Attestation: I personally reviewed and interpreted this ECG as follows: Indication: SOB/dyspnea Rate (beats per minute): 119 Rhythm: atrial fibrillation Findings: + 1st degree AV block and + RBBB (incomplete) Blood Pressure Blood Pressure Findings: Elevated blood pressure Blood Pressure Disposition: further management by hospitalist LIDA Brar The patient is a pleasant 88 y/o gentleman with a pmhx of afib on Coumadin, CAD, ICM, PAD s/p right leg BKA, HTN who presents to the emergency department with worsening SOB over the past 2 days with cough and sputum production per HPI. On arrival the patient is chronically ill appearing but in NAD, AF, HR 110-120s and otherwise VSS. Patient appears clinically dry. Lung are diminished throughout with scant wheezes. EKG demonstrates afib without overt acute ischemia and is similar to prior. CXR without acute process. WBC and platelets wnl. H/H similar to prior. Chemistry without acidosis. LFTs and electrolytes unremarkable. Troponin negative. BNP only 1855. UA pending. CTA of the chest performed given unremarkable CXR but with patient complaining of significant DAVIS. CTA of chest also unremarkable and negative for acute process. Patient with improvement with duoneb with improved air movement and saturating normally on RA. However upon ambulatory trial patient became dyspneic and tachycardic with O2 saturation reading in the 70s. Given this reasonable to admit the patient for further management for what seems c/w a bronchitis. Patient given Solumedrol and Doxycycline. Case was discussed with Hadley Rubio, who evaluate the patient for admission. Impression & Plan Bronchitis, Chronic atrial fibrillation Discharge Plan Visit Data *Final* Discharge Date/Time: 11/14/18 18:27 Chief Complaint: Shortness of Breath/Dyspnea Stated Complaint: chest pain ED Provider: Memo Zamudio Discharge Problem: Bronchitis, Chronic atrial fibrillation Patient Disposition: Admitted As Inpatient Discharge Instructions Interventions: ED Discharge Assessment Last Done: 11/14/18 18:27 The scribe's documentation has been prepared under my direction and personally reviewed by me in its entirety. I confirm that the note above accurately reflects all work, treatment, procedures, and medical decision making performed by me.
[2018-11-14] MEDS ORDERED: SODIUM CHLORIDE 0.9% 1000ML 500 ML IV ONE (16:05)
[2018-11-14 16:39] LABS: Appearance Urine Turbid (Clear); Bacteria Urine Automated Negative (Negative); Bilirubin Urine Negative (Negative); Blood Urine 1+ (Negative); Color Urine Yellow; Glucose Urine UA Negative (Negative); Ketones Urine 1+ (Negative); Leukocyte Esterase Urine 3+ (Negative); Nitrite Urine Negative (Negative); Protein Urine Negative (Negative); Specific Gravity Urine > 1.045 (1.000-1.030); Urobilinogen Urine Negative (Negative); WBC Urine Automated >30 /hpf (0-5)
[2018-11-14 17:35] LABS: Cast Urine Automated 0 /lpf (0-5)
--- NOTE | 2018-11-14 18:01 | History & Physical Report ---
Date of Service November 14, 2018 Assessment & Plan (1) Hypoxia: (2) Bronchitis: -Admit to [facility] -Patient presenting from home with reports of shortness of breath that began yesterday -In the ED, CXR, CTA chest, labs all unremarkable however when patient ambulated he desaturated to 75% on room air, this improved with 2 L of oxygen via nasal cannula -Also on presentation, patient had significant wheezing and rhonchi which improved after nebulizer and IV steroids -Currently lung exam reveals diminished lung sounds, no wheezing or rhonchi -Possible acute bronchitis -Received IV doxy in the ED, will continue with p.o. tomorrow -PRN nebs -Continue oxygen, wean as able -attempt to repeat ambulatory pulse ox tomorrow -After discussion with daughter, she reports her father has had a steady decline over the past few months. She reports that she believes he is giving up and ready to . Will place a palliative care consult. (3) Abnormal urinalysis: -Possible contamination -No urinary symptoms -Follow culture (4) Chronic atrial fibrillation: -Heart rates currently elevated, likely secondary to missed morning medications and nebulizer treatment -Resume home doses of metoprolol and digoxin, monitor and make adjustments as needed -Anticoagulated on Coumadin, INR 2.1, continue Coumadin (5) Ischemic cardiomyopathy: -EF 35% -Appears euvolemic on exam -Does not take routine diuretics at home (6) DM type 2 (diabetes mellitus, type 2): -Hgb A1c 8.1 02/2018 -Hold oral agents and utilize NovoLog per protocol while hospitalized (7) CAD (coronary artery disease): -Appears stable, no reports of chest pain -Continue Plavix, statin, beta-cathy (8) Hypertension: -BP mildly elevated, likely secondary to missed morning medications -Continue lisinopril, metoprolol (9) Dysphasia: -Chronic -Provide thickener for liquids and minced/moist diet (10) Hypothyroidism: -Continue levothyroxine (11) DVT prophylaxis: -On Coumadin, INR 2.1 History of Present Illness Chief Complaint: Shortness of breath Primary Care Provider: Kimberley Reid MD 88-year-old male who presents the ED with shortness of breath. Patient reports his symptoms began last evening and acutely worsened this morning. Daughter is the bedside who provides some history. She reports that she noted her father to be very short of breath while having breakfast this morning. He also has had a cough productive for thick white sputum. No fevers or chills. He denies chest pain. No lightheadedness, dizziness, diaphoresis, syncopal events. Appetite has been poor for some time however weight has been stable. Patient denies abdominal pain, nausea, vomiting, diarrhea. No urinary symptoms. In the ED, work-up is essentially unremarkable however when patient ambulated he desaturated to 75% on room air. Patient improved with 2 L of oxygen via nasal cannula. He was also given nebulizer treatment, IV doxycycline, IV methylprednisolone, and IVF. Allergies Allergy/AdvReac Type Severity Reaction Status Date / Time pioglitazone Allergy Unknown vision Verified 11/14/18 11:24 problem Home Medications Home Medications Medication Instructions Recorded Confirmed Type atorvastatin 80 mg PO DAILY 11/14/18 11/14/18 History cholecalciferol (vitamin D3) 1,000 unit PO DAILY 11/14/18 11/14/18 History [Vitamin D3] clopidogrel 75 mg PO QAM 11/14/18 11/14/18 History digoxin [Digitek] 125 mcg PO DAILY 11/14/18 11/14/18 History ferrous sulfate [iron] 325 mg PO DAILY 11/14/18 11/14/18 History finasteride 5 mg PO QAM 11/14/18 11/14/18 History glimepiride 8 mg PO QAM 11/14/18 11/14/18 History levothyroxine 75 mcg PO QAM 11/14/18 11/14/18 History linagliptin [Tradjenta] 5 mg PO DAILY 11/14/18 11/14/18 History lisinopril 2.5 mg PO DAILY 11/14/18 11/14/18 History magnesium oxide 400 mg PO DAILY 11/14/18 11/14/18 History metformin 500 mg PO DAILY 11/14/18 11/14/18 History metoprolol succinate 50 mg PO DAILY 11/14/18 11/14/18 History tamsulosin 0.4 mg PO DAILY 11/14/18 11/14/18 History warfarin [Jantoven] 2.5 mg PO SUTUTHSA 11/14/18 11/14/18 History warfarin [Jantoven] 5 mg PO MOWEFR 11/14/18 11/14/18 History Past Med/Surg History Medical History Hx of right BKA (Chronic) PAD (peripheral artery disease) (Chronic) Hypertension (Chronic) CAD (coronary artery disease) (Chronic) 08/2009-RCA stent 10/2014-LAD stent Chronic atrial fibrillation (Chronic) Ischemic cardiomyopathy (Chronic) Hypothyroidism (Chronic) DM type 2 (diabetes mellitus, type 2) (Chronic) Surgical History History of thoracic surgery (Chronic) S/P VATS with talc pleurodesis S/P cholecystectomy (Chronic) History of cataract surgery (Chronic) Family History Mother Diabetes Social History Current Living Situation: Family Feels Safe at Home: Yes Smoking Status: Never smoker Hx Alcohol Use: No Review of Systems Review of Systems: ROS per HPI, all other systems reviewed and negative Physical Exam Constitutional: + thin; no acute distress Vitals as above Eyes: PERRL, conjunctivae normal, anicteric sclerae ENMT: external ear and nose normal, oropharynx normal Respiratory: normal respiratory effort; no respiratory distress Auscultation: + diminished lung sounds Cardiovascular: Rate/Rhythm: + tachycardic; not irregularly irregular Vessels: normal peripheral pulses Extremities: no edema Gastrointestinal (Abdomen): normal bowel sounds, soft, nontender, no hepatosplenomegaly Musculoskeletal: no cyanosis or clubbing, extremities motor strength 5/5 S/P right BKA Skin: no rashes, warm and dry Neurologic: PERRL, EOMI, accommodation nl, no face palsy, no dysarthria Psychiatric: Orientation: alert and oriented x 3 Affect: + depressed affect Results & Data Vital Signs (Past 12 Hours) Vital Signs Temp Pulse Pulse Pulse Resp Resp BP 11/14/18 16:40 110 H 18 11/14/18 15:27 155 H 28 H 11/14/18 14:34 105 H 22 11/14/18 12:15 110 H 20 11/14/18 12:11 110 H 10 L 11/14/18 11:03 11/14/18 10:33 37.0 C 125 H 30 H 155/89 H BP Pulse Ox Pulse Ox 11/14/18 16:40 161/102 H 100 11/14/18 15:27 75 L 11/14/18 14:34 152/85 H 100 11/14/18 12:15 101/67 98 11/14/18 12:11 99 11/14/18 11:03 100 11/14/18 10:33 98 Laboratory Results Short CBC 11/14/18 Range/Units 10:42 WBC 10.06 (4.8-10.8) K/uL Hgb 12.0 L (14.0-18.0) g/dL Hct 35.8 L (42-52) % Plt Count 181 (130-400) K/uL BMP 11/14/18 10:42 Sodium 141 Potassium 4.6 Chloride 104 Carbon Dioxide 30 BUN 19 H Creatinine 0.71 Glucose 155 H Calcium 9.0 Cardiac Enzymes 11/14/18 Range/Units 10:42 Troponin I < 0.015 (0-0.045) ng/ml Liver Function 11/14/18 Range/Units 10:42 Total Bilirubin 0.6 (0.2-1) mg/dl AST 26 (15-37) U/L ALT 33 (12-78) U/L Alkaline Phosphatase 96 (45-117) U/L Albumin 3.5 (3.4-5.0) gm/dl Urine 11/14/18 Range/Units 16:10 Urine Color Yellow Urine Appearance Turbid A (Clear) Urine pH 6.0 (4.5-7.5) Ur Specific Broad Top > 1.045 H (1.000-1.030) Urine Protein Negative (Negative) Urine Glucose (UA) Negative (Negative) Diagnostic Findings CXR IMPRESSION: No acute cardiopulmonary findings. No change in appearance of the chest. Trace right pleural effusion which may be chronic. CHEST CTA IMPRESSION: 1. There is no evidence of pulmonary embolus in the main, lobar, or segmental pulmonary arteries. 2. There is no airspace consolidation or pleural effusion. 3. Cardiomegaly. 4. Chronic parenchymal changes as above. Code Status & VTE Plan Code Status Patient is a DNR as per my discussion with patient's daughter (POA) and also per living will copy provided. VTE Prophylaxis Plan VTE Prophylaxis will be ordered: Yes Supervising Physician Co-Signing Physician Notes I have seen and assessed the patient with physician bindery library technical assistant and agree with the assessment and plan and would like to comment that This is an 88 year old patient with hypoxia. No pulmonary embolism has been identified. On exam, patient's lung exam sounds clear. He does not appear to be fluid overloaded. However patient's daughter reports history of aspiration. There is atrial fibrillation versus sinus tachycardia. Heart rate is in the high 90s at the time of my exam. Possibly that there may be cardiac component to the shortness of breath. Patient should have follow up echocardiogram performed if hypoxia does not resolve with nebulizer treatments and doxycycline. will monitor the patient on telemetry to control heart rate and monitor for arrhythmia. Have discussed plans with patient and his daughter Lashanda [phone] General: speaking comfortably Heart: mild tachycardia Abdomen: soft, nontender, positive bowel sounds Extremities: prosthetic right leg.
[2018-11-14] MEDS ORDERED: GLUCAGON FOR INJ 1 MG VIAL SQ PRN (19:22)
[2018-11-14] MEDS ORDERED: IPRATROPIUM BROMIDE NEB SOLN 0.02% 2.5 ML VIAL INH PRN (19:22)
[2018-11-14] MEDS ORDERED: GLUCOSE 10 TABS/TUBE PO PRN (19:22)
[2018-11-14] MEDS ORDERED: ACETAMINOPHEN 325 MG TAB PO PRN (19:22)
[2018-11-14] MEDS ORDERED: GLUCOSE 40% GEL 15 GM TUBE PO PRN (19:22)
[2018-11-14] MEDS ORDERED: XOPENEX/ATROVENT 0.63mg/0.5MG NEB COMBO NEB PRN (19:22)
[2018-11-14] MEDS ORDERED: CARBOHYDRATES FOR HYPOGLYCEMIA PO PRN (19:22)
[2018-11-14] MEDS ORDERED: DEXTROSE 50% 50 ML SYRINGE IV PRN (19:22)
[2018-11-14] MEDS ORDERED: LEVALBUTEROL HCL 0.63 MG/3 ML NEB NEB PRN (19:22)
[2018-11-14] MEDS ORDERED: WARFARIN SOD 2.5 MG TAB PO SCH (20:00)
[2018-11-14] MEDS: DIGOXIN 0.125 MG TAB PO SCH (20:33)
[2018-11-14] MEDS: INSULIN ASPART 100 UNITS/ML 3 ML PEN SC SCH (20:37)
[2018-11-15] MEDS ORDERED: INSULIN GLARGINE SOLOSTAR 100 UNITS/ML 3 ML PEN SQ STA (00:01)
[2018-11-15] MEDS: LEVOTHYROXINE SODIUM 75 MCG TABLET PO SCH (06:44)
[2018-11-15] MEDS: DOXYCYCLINE HYCLATE 100 MG CAP PO SCH ×2 (06:44→17:52)
[2018-11-15 06:55] LABS: Hematocrit (blood only) 33.9 % (42-52); Hemoglobin 11.3 g/dL (14.0-18.0); Mean Corpuscular Hgb Conc 33.3 g/dL (32-36); Mean Corpuscular Volume 95.8 fL (80-100); Mean Platelet Volume 11.8 fL (7.4-10.4); Platelet Count 197 K/uL (130-400); RDW Coefficient of Variation 13.3 % (11.5-14.5); RDW Standard Deviation 46.7 fL (36.4-46.3); Red Blood Count 3.54 M/uL (4.7-6.1); White Blood Count 7.87 K/uL (4.8-10.8)
[2018-11-15 07:09] LABS: Estimated Average Glucose 169 mg/dl; Hemoglobin A1C 7.5 % (4.5-5.6)
[2018-11-15 07:30] LABS: BUN Creatinine Ratio 35.2 (10-20); Creatinine Clr Calc Pharmacy 58.7 ml/min; Est GFR (African American) 96.7; Est GFR (Non-African American) 83.4; Potassium 4.3 mmol/L (3.5-5.1)
[2018-11-15] MEDS: FERROUS SULFATE 325 MG TAB PO SCH (08:09)
[2018-11-15] MEDS: TAMSULOSIN HCL 0.4 MG CAP PO SCH (08:10)
[2018-11-15] MEDS: LISINOPRIL 2.5 MG TAB PO SCH (08:10)
[2018-11-15] MEDS: MAGNESIUM OXIDE 400 MG TAB PO SCH (08:10)
[2018-11-15] MEDS: METOPROLOL SUCC 50MG EXT REL TAB PO SCH (08:10)
[2018-11-15] MEDS: CLOPIDOGREL BISULFATE 75 MG TAB PO SCH (08:10)
[2018-11-15] MEDS: ATORVASTATIN 40 MG TAB PO SCH (08:11)
[2018-11-15] MEDS: FINASTERIDE 5 MG TAB PO SCH (08:11)
[2018-11-15] MEDS: CHOLECALCIFEROL 1,000 UNITS TAB PO SCH (08:11)
--- NOTE | 2018-11-15 08:14 | Hospitalist Progress Note ---
Date of Service November 15, 2018 Assessment & Plan (1) Hypoxia: (2) Bronchitis: -Admit to [facility] -Patient presenting from home with reports of shortness of breath that began yesterday -In the ED, CXR, CTA chest, labs all unremarkable however when patient ambulated he desaturated to 75% on room air, this improved with 2 L of oxygen via nasal cannula -Also on presentation, patient had significant wheezing and rhonchi which improved after nebulizer and IV steroids -At this time, the preliminary diagnosis is acute bronchitis for which patient received received IV doxy in the ED, and to continue with Doxycycline and PRN nebs -will attempt to titrate down oxygen towards room air and to monitor oxygen with exertion (3) Abnormal urinalysis: -Possible contamination -No urinary symptoms -Follow culture (4) Chronic atrial fibrillation: -on admission on 11/14/18, Heart rates currently elevated, likely secondary to missed morning medications and use of nebulizer treatment -continue home doses of metoprolol and digoxin, monitor and make adjustments as needed -continue Coumadin -heart rate are better controlled since being on medical regan from 11/14/18 but will transfer to telemetry for closer monitoring of heart rates (5) Ischemic cardiomyopathy: -EF 35% -Appears euvolemic on exam -Does not take routine diuretics at home -can consider repeat echocardiogram if hypoxia does not resolved with current treatments (6) DM type 2 (diabetes mellitus, type 2): Type 2 diabetes mellitus without current long ter m use of insulin with complications -HbA1c 7.5 -on admission day, patient had glucose 304. Patient received 10 units of Lantus -continue sliding scale insulin and titrate insulin as needed -hold home Hold oral agents at this time right leg Prosthesis -right leg stump -patient ambulates with right leg prosthesis (7) CAD (coronary artery disease): -Appears stable, no reports of chest pain -Continue Plavix, statin, beta-cathy (8) Hypertension: -BP mildly elevated, likely secondary to missed morning medications -Continue lisinopril, metoprolol (9) Dysphasia: -Chronic, as per patient's daughter he has had chronic aspiration problems in the past -Provide thickener for liquids and minced/moist diet -will ask for speech and swallow assessment (10) Hypothyroidism: -Continue levothyroxine (11) DVT prophylaxis: -On Coumadin Lashanda [phone] Subjective Patient's heart rates better controlled while on medical surgery regan. However with atrial fibrillation and somewhat difficult to measure the rates. Patient denies chest pain. does not express of having palpitations. On nasal cannula throughout the night and saturating well. patient does not have pain. he feels that he is well looked after in the hospital. Physical Exam Constitutional: comfortable Eyes: PERRL, conjunctivae normal, anicteric sclerae EOM intact bilaterally ENMT: external ear and nose normal, oropharynx normal Neck: trachea midline, no thyromegaly normal visual inspection Respiratory: normal respiratory effort, lungs clear to auscultation Cardiovascular: Rate/Rhythm: + irregularly irregular Gastrointestinal (Abdomen): normal bowel sounds, soft, nontender, no hepatosplenomegaly Musculoskeletal: Head/Neck/Chest: normocephalic and head atraumatic Extremities: + lower leg abnormality (right knee stump) Neurologic: PERRL, EOMI, accommodation nl, no face palsy, no dysarthria CN's II-XI intact bilaterally Psychiatric: Orientation: alert and cooperative Results & Data Vital Signs (Past 12 Hours) Vital Signs Temp Pulse Pulse Resp BP Pulse Ox 11/15/18 07:31 36.6 C 90 18 152/72 H 100 11/14/18 22:54 36.8 C 92 H 18 164/80 H 100 11/14/18 20:33 80
[2018-11-15 08:27] LABS: INR 2.4 (0.9-1.1); Prothrombin Time 22.7 Seconds (9.0-12.0)
[2018-11-15] MEDS: INSULIN ASPART 100 UNITS/ML 3 ML PEN SC SCH ×4 (08:45→20:54)
--- NOTE | 2018-11-15 09:56 | Palliative Care Consultation ---
Date of Consultation November 15, 2018 Assessment & Plan (1) Palliative care encounter: This is an 88 liana old male who presented to the ED from home with increased SOB that started on 11/13. The patient had a CXR and CTA which were negative. His SpO2 with exertion dropped to 75%, but improved with supplemental O2. 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 The patient has been started on IV antibiotics, nebulizer treatments and IV steroids. The patient's daughter, Lashanda ([phone]) requested to be seen by Palliative Care to discuss roller print tender goals of care. Palliative care consult was placed and after discussion with the Hospitalist, we will see the patient. -I met with patient and his daughter, Lashanda, in room 419. Patient likes to go by "Temo", it is his middle name -Patient lives with his , Joanie, daughter Lashanda and son-in-law, Hayden. Lashanda and Hayden are the primary caregivers. -Patient is relatively independent, uses a cane for ambulation and does the majority of his AM care independently. -Pt daughter has noticed a functional decline, including increased sleeping throughout the day over the past few months. She requested a palliative care consult to discuss roller print tender needs/options. -The patient, this hospitalization has a diagnosis that likely he will respond to treatment and return to his baseline functional status. The patient does have diabetes and a right AKA s/p prosthetic leg that he can fully put on independently. -The daughter does have concerns of his worsening dysphagia of unknown origin. a speech therapy consult has been placed. This conversation led us to discuss a POLST form for which we completed indicating: DNR/DNI, Limited Interventions- they are very willing to return at the hospital, which I support since there is not any real indication that his current admission would be a cycled even-, limited abx trial and NO artificial nutrition/hydration. -The patients daughter indicated that she would like to hear more options regarding Home health as she is the only child and feels care may become overwhelming in the future. I did discuss with case management who will follow. I support and anticipate this patient will be discharged home with PT/OT services through home health. -I did give my business card to the patients daughter for future reference and need. -PPS: 60% (2) Bronchitis: (3) Chronic atrial fibrillation: (4) Dysphasia: Supervising Physician Co-Signing Physician Notes Chart reviewed, patient seen and examined-patient's daughter at bedside during exam. CATERING TRUCK DRIVER performing bedtime swallow eval-patient did have immediate coughing on thin liquids. PE: Awake and alert, no acute distress, thin HEENT: EOMI Respiratory: Clear breath sounds, on room air CV: Irregular Abdomen: Nondistended Agree with above note, assessment and plan as per GHAZALA Lyn Daughter reported satisfaction with visit-found it very helpful regarding advanced care planning. POLST form completed History of Present Illness Reason for Consultation: goals of care Requesting Physician: Dr. Jones Attending Physician: Chaim Jones MD History of Present Illness This is an 88 liana old male who presented to the ED from home with increased SOB that started on 11/13. The patient had a CXR and CTA which were negative. His SpO2 with exertion dropped to 75%, but improved with supplemental O2. Additional PMH includes; Atrial fibrillation, ischemic HARNESS BRUSHER, CAD, HTN, dysphagia, DM2, hypothyroidism and he does have a right leg prothesis. The patient has been started on IV antibiotics, nebulizer treatments and IV steroids. The patient's daughter, Lashanda ([phone]) requested to be seen by Palliative Care to discuss roller print tender goals of care. Palliative care consult was placed and after discussion with the Hospitalist, we will see the patient. Please see A/P for additional information. Thank you kindly for involving the Palliative Care Team with this patient. We will follow as needed. Allergies Allergy/AdvReac Type Severity Reaction Status Date / Time pioglitazone Allergy Unknown vision Verified 11/14/18 11:24 problem Home Medications Home Medications Medication Instructions Recorded Confirmed Type atorvastatin 80 mg PO DAILY 11/14/18 11/14/18 History cholecalciferol (vitamin D3) 1,000 unit PO DAILY 11/14/18 11/14/18 History [Vitamin D3] clopidogrel 75 mg PO QAM 11/14/18 11/14/18 History digoxin [Digitek] 125 mcg PO DAILY 11/14/18 11/14/18 History ferrous sulfate [iron] 325 mg PO DAILY 11/14/18 11/14/18 History finasteride 5 mg PO QAM 11/14/18 11/14/18 History glimepiride 8 mg PO QAM 11/14/18 11/14/18 History levothyroxine 75 mcg PO QAM 11/14/18 11/14/18 History linagliptin [Tradjenta] 5 mg PO DAILY 11/14/18 11/14/18 History lisinopril 2.5 mg PO DAILY 11/14/18 11/14/18 History magnesium oxide 400 mg PO DAILY 11/14/18 11/14/18 History metformin 500 mg PO DAILY 11/14/18 11/14/18 History metoprolol succinate 50 mg PO DAILY 11/14/18 11/14/18 History tamsulosin 0.4 mg PO DAILY 11/14/18 11/14/18 History warfarin [Jantoven] 2.5 mg PO SUTUTHSA 11/14/18 11/14/18 History warfarin [Jantoven] 5 mg PO MOWEFR 11/14/18 11/14/18 History Patient History Medical History Hx of right BKA (Chronic) PAD (peripheral artery disease) (Chronic) Hypertension (Chronic) CAD (coronary artery disease) (Chronic) 08/2009-RCA stent 10/2014-LAD stent Chronic atrial fibrillation (Chronic) Ischemic cardiomyopathy (Chronic) Hypothyroidism (Chronic) DM type 2 (diabetes mellitus, type 2) (Chronic) Surgical History History of thoracic surgery (Chronic) S/P VATS with talc pleurodesis S/P cholecystectomy (Chronic) History of cataract surgery (Chronic) Family History Mother Diabetes Social History Preferred Language: [place] Communication Ability: Effective Beliefs That Will Affect Care: None marital status: Current Living Situation: Family Current Living Situation Comment: Lives with and daughter Other Information That Helps Us Care for You: No Feels Safe at Home: No Is there a partner from a previous relationship who is making you feel unsafe now?: No Any Concerns about Your Family Situation: No Would You Like to Speak to Someone About Your Situation: No Smoking Status: Former smoker Hx Alcohol Use: No Hx Substance Use: No Review of Systems Review of Systems: All systems reviewed & are unremarkable except as noted in HPI & below Physical Exam Constitutional: + ill appearing, + well hydrated and + thin Eyes: PERRL, conjunctivae normal, anicteric sclerae ENMT: external ear and nose normal, oropharynx normal Neck: trachea midline, no thyromegaly Respiratory: normal respiratory effort; does not use accessory muscles Auscultation: + diminished lung sounds Cardiovascular: Rate/Rhythm: + irregularly irregular Extremities: normal capillary refill Gastrointestinal (Abdomen): normal bowel sounds, soft, nontender, no hepatosplenomegaly Skin: no rashes, warm and dry normal turgor Psychiatric: A+Ox3, euthymic affect Lymphatic: no cervical or axillary lymphadenopathy Results & Data Vital Signs (Past 12 Hours) Vital Signs Temp Pulse Resp BP Pulse Ox 11/15/18 07:31 36.6 C 90 18 152/72 H 100 11/14/18 22:54 36.8 C 92 H 18 164/80 H 100 PG Care Time/CCT Total # of Minutes Spent Total Time Spent with Patient: Total time spent is greater than 50% in coordination of care (as documented) at patient's floor/unit and/or counseling patient: 70 minutes Time Spent Midlevel Total time spent 70 minutes with > 50% of that time spent discussing goals of care and completing a POLST form with patient and his daughter at the bedside.
[2018-11-15] MEDS: DIGOXIN 0.125 MG TAB PO SCH (15:55)
[2018-11-15] MEDS ORDERED: WARFARIN SOD 5 MG TAB PO SCH (16:00)
[2018-11-15] MEDS ORDERED: INSULIN GLARGINE SOLOSTAR 100 UNITS/ML 3 ML PEN SQ SCH (21:00)
[2018-11-16 04:55] VITALS: TEMP 97.7
[2018-11-16] MEDS: LEVOTHYROXINE SODIUM 75 MCG TABLET PO SCH (05:54)
[2018-11-16] MEDS: DOXYCYCLINE HYCLATE 100 MG CAP PO SCH (05:54)
[2018-11-16] MEDS ORDERED: MAGNESIUM HYDROXIDE SUSP 30 ML UDC PO PRN (08:09)
[2018-11-16] MEDS: INSULIN ASPART 100 UNITS/ML 3 ML PEN SC SCH ×2 (08:46→12:33)
[2018-11-16] MEDS: FERROUS SULFATE 325 MG TAB PO SCH (08:48)
[2018-11-16] MEDS: TAMSULOSIN HCL 0.4 MG CAP PO SCH (08:49)
[2018-11-16] MEDS: MAGNESIUM OXIDE 400 MG TAB PO SCH (08:49)
[2018-11-16] MEDS: ATORVASTATIN 40 MG TAB PO SCH (08:49)
[2018-11-16] MEDS: METOPROLOL SUCC 50MG EXT REL TAB PO SCH (08:50)
[2018-11-16] MEDS: CLOPIDOGREL BISULFATE 75 MG TAB PO SCH (08:50)
[2018-11-16] MEDS: FINASTERIDE 5 MG TAB PO SCH (08:50)
[2018-11-16] MEDS: LISINOPRIL 2.5 MG TAB PO SCH (08:51)
[2018-11-16] MEDS: CHOLECALCIFEROL 1,000 UNITS TAB PO SCH (08:51)
[2018-11-16 08:53] LABS: Basophils # (auto) 0.01 K/uL (0-0.2); Basophils % (auto) 0.1 %; Eosinophils # (auto) 0.03 K/uL (0-0.5); Eosinophils % (auto) 0.2 %; Hematocrit (blood only) 36.7 % (42-52); Hemoglobin 12.2 g/dL (14.0-18.0); Immature Granulocytes # (auto) 0.03 K/uL (0.00-0.02); Immature Granulocytes % (auto) 0.2 %; Lymphocytes # (auto) 1.33 K/uL (1.2-3.4); Lymphocytes % (auto) 10.9 %; Mean Corpuscular Hgb Conc 33.2 g/dL (32-36); Mean Corpuscular Volume 96.6 fL (80-100); Mean Platelet Volume 11.6 fL (7.4-10.4); Monocytes # (auto) 1.07 K/uL (0.11-0.59); Monocytes % (auto) 8.8 %; Neutrophils # (auto) 9.69 K/uL (1.4-6.5); Neutrophils % (auto) 79.8 %; Platelet Count 209 K/uL (130-400); RDW Coefficient of Variation 13.7 % (11.5-14.5); RDW Standard Deviation 47.8 fL (36.4-46.3); White Blood Count 12.16 K/uL (4.8-10.8)
[2018-11-16 09:01] LABS: Prothrombin Time 28.2 Seconds (9.0-12.0)
[2018-11-16 09:25] LABS: BUN Creatinine Ratio 33.8 (10-20); Calcium 9.3 mg/dl (8.5-10.1); Creatinine Clr Calc Pharmacy 54.9 ml/min; Est GFR (African American) 94.1; Est GFR (Non-African American) 81.2
[2018-11-16 10:55] VITALS: PULSE 79; O2SAT 98
--- NOTE | 2018-11-16 13:07 | Cardiology Consultation ---
Date of Consultation November 16, 2018 Assessment & Plan (1) DAVIS (dyspnea on exertion): Dyspnea on exertion: Although it seems that his symptoms got considerably worse the day before presentation it appears that he has had a month of progressive dyspnea. He is not on a diuretic and his BNP was elevated on reason [facility]. I think would be worthwhile giving him a dose of diuretic to see if that improves his symptoms, he may have become gradually fluid overloaded, especially in the heat and humidity. I will order that. (2) Ischemic cardiomyopathy: He has an ischemic heart myopathy with left ventricular function of around 35% historically. He does not seem to be in florid heart failure currently although I think he may have slight fluid overload based on his BNP. I think we should diurese him a little bit, perhaps even just a single dose, and he is on appropriate medications for his cardiomyopathy which include metoprolol succinate and lisinopril. (3) NSVT (nonsustained ventricular tachycardia): He had a brief run of nonsustained ventricular tachycardia on telemetry, this was asymptomatic and he has no prior history of lightheadedness, dizziness, presyncope or syncope. I am hesitant to treat this specifically, or pursue further evaluation. I would therefore not do anything based on this incidental finding. (4) Chronic atrial fibrillation: He is in permanent atrial fibrillation, the rate appears adequately controlled and he is on warfarin. I would not alter this regimen. History of Present Illness Reason for Consultation: Dyspnea on exertion, nonsustained ventricular tachycardia Attending Physician: Chaim Jones MD History of Present Illness This is a 88-year-old male who follows with Dr. Olguin in our office. He has a history of permanent atrial fibrillation, hypertension, hypercholesterolemia, ischemic cardiomyopathy, prior intervention in 2009 and 2014. His ejection fraction in the past has been about 35%. He is typically maintained on metoprolol and digoxin for heart rate control and warfarin as an anticoagulant. He presents with recent onset of shortness of breath and hypoxia with ambulation. Evidently he has been having a steady decline over several months according to his daughter. Evaluation here has been somewhat inconclusive, he did have an elevated white count but no infiltrate on x-ray so it could be a bronchitis, his BNP however was elevated although he did not have clear heart failure on chest x-ray. Cardiac enzymes were negative on admission. At the time of my evaluation the patient and his daughter were both in the room. Although he is a little bit nebulous about his symptoms she confirms that he has been having increasing difficulty with activity over the last month or so, he does not have exertional chest discomfort and has not had lightheadedness, dizziness, presyncope or syncope that either he recalls or she knows about. No exertional chest pain. Allergies Allergy/AdvReac Type Severity Reaction Status Date / Time pioglitazone Allergy Unknown vision Verified 11/14/18 11:24 problem Home Medications Home Medications Medication Instructions Recorded Confirmed Type atorvastatin 80 mg PO DAILY 11/14/18 11/14/18 History cholecalciferol (vitamin D3) 1,000 unit PO DAILY 11/14/18 11/14/18 History [Vitamin D3] clopidogrel 75 mg PO QAM 11/14/18 11/14/18 History digoxin [Digitek] 125 mcg PO DAILY 11/14/18 11/14/18 History ferrous sulfate [iron] 325 mg PO DAILY 11/14/18 11/14/18 History finasteride 5 mg PO QAM 11/14/18 11/14/18 History glimepiride 8 mg PO QAM 11/14/18 11/14/18 History levothyroxine 75 mcg PO QAM 11/14/18 11/14/18 History linagliptin [Tradjenta] 5 mg PO DAILY 11/14/18 11/14/18 History lisinopril 2.5 mg PO DAILY 11/14/18 11/14/18 History magnesium oxide 400 mg PO DAILY 11/14/18 11/14/18 History metformin 500 mg PO DAILY 11/14/18 11/14/18 History metoprolol succinate 50 mg PO DAILY 11/14/18 11/14/18 History tamsulosin 0.4 mg PO DAILY 11/14/18 11/14/18 History warfarin [Jantoven] 2.5 mg PO SUTUTHSA 11/14/18 11/14/18 History warfarin [Jantoven] 5 mg PO MOWEFR 11/14/18 11/14/18 History Patient History Medical History Hx of right BKA (Chronic) PAD (peripheral artery disease) (Chronic) Hypertension (Chronic) CAD (coronary artery disease) (Chronic) 08/2009-RCA stent 10/2014-LAD stent Chronic atrial fibrillation (Chronic) Ischemic cardiomyopathy (Chronic) Hypothyroidism (Chronic) DM type 2 (diabetes mellitus, type 2) (Chronic) Surgical History History of thoracic surgery (Chronic) S/P VATS with talc pleurodesis S/P cholecystectomy (Chronic) History of cataract surgery (Chronic) Family History Mother Diabetes Social History Preferred Language: Haitian Communication Ability: Effective Beliefs That Will Affect Care: None marital status: Current Living Situation: Family Current Living Situation Comment: Lives with and daughter Other Information That Helps Us Care for You: No Feels Safe at Home: No Is there a partner from a previous relationship who is making you feel unsafe now?: No Any Concerns about Your Family Situation: No Would You Like to Speak to Someone About Your Situation: No Smoking Status: Former smoker Hx Alcohol Use: No Hx Substance Use: No Review of Systems Review of Systems: All systems reviewed & are unremarkable except as noted in HPI & below Physical Exam Physical Exam: Constitutional: Alert, cooperative and in no distress. HEENT: Unremarkable Neck: No jugular venous distention, carotid pulses are irregular but otherwise normal and equal bilaterally without bruits. Pulmonary: Clear to auscultation bilaterally. Cardiac: Irregular rhythm with no murmur, gallop or rub. Abdomen: Soft, nontender with normal bowel sounds. Extremities: The right leg is prosthetic, the left has no edema. Distal pulses absent. Neurologic: No focal findings. Gait is steady using a cane. Skin: No rash, ecchymoses is present on his hands, no petechiae. Results & Data Vital Signs (Past 12 Hours) Vital Signs Temp Pulse Resp BP Pulse Ox 11/16/18 10:53 36.5 C 79 16 139/72 98 11/16/18 07:11 36.5 C 80 18 166/72 H 100 11/16/18 04:54 36.5 C 82 20 148/52 H 100 Diagnostic Findings Electrocardiogram: Atrial fibrillation, no acute changes Telemetry: Atrial fibrillation with a reasonably well-controlled heart rate. One episode of nonsustained ventricular tachycardia, 10 beats at an irregular rate averaging around 170 bpm.
[2018-11-16] MEDS ORDERED: FUROSEMIDE 20 MG in SYRINGE 0 ML IV ONE (13:15)
--- NOTE | 2018-11-16 14:13 | Hospitalist Progress Note ---
Date of Service November 16, 2018 Assessment & Plan (1) Hypoxia: (2) Bronchitis: -Patient had hypoxia and shortness of breath for which he came to the hospital for on 11/15/18 and lung imaging without infiltrates -In the ED, CXR, CTA chest, labs all unremarkable however when patient ambulated he desaturated to 75% on room air, this improved with 2 L of oxygen via nasal cannula -Also on presentation, patient had significant wheezing and rhonchi which improved after nebulizer and IV steroids -Patient was started on Doxycycline and was weaned off oxygen by 11/16/18 and no additional oxygen needs at rest or with ambulation. The initial episode of hypoxia at home may be from bronchitis or perhaps a transient mucous plug that could have cleared given patient's history of aspiration. -Patient should take Doxycycline for 6 more days. Patient should have minced, moist, slippery diet with honey thick liquids. eat with small bites and drink in small slips and do eating/drinking activities in upright position -11/20/2018 1:00 PM Provider Franklin Horan MD Department Family [facility] (3) Abnormal urinalysis: -Possible contamination -No urinary symptoms -Follow culture (4) Chronic atrial fibrillation: -on admission on 11/14/18, Heart rates currently elevated, likely secondary to missed morning medications and use of nebulizer treatment -continue home doses of metoprolol and digoxin, monitor and make adjustments as needed -continue Coumadin -heart rate are better controlled since being on medical regan from 11/14/18 and transferred to telemetry for closer monitoring of heart rates -an episode of non sustained ventricular tachycardia of 10 beat run noted on AM of 11/16/18 for which patient is asymptomatic. [facility] Cardiology Dr. 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 Patient received 10 units of Lantus -continue sliding scale insulin and titrate insulin as needed -hold home Hold oral agents at this time right leg Prosthesis -right leg stump -patient ambulates with right leg prosthesis (7) CAD (coronary artery disease): -Appears stable, no reports of chest pain -Continue Plavix, statin, beta-cathy (8) Hypertension: -BP mildly elevated, likely secondary to missed morning medications -Continue lisinopril, metoprolol (9) Dysphasia: -Chronic, as per patient's daughter he has had chronic aspiration problems in the past -Patient should have minced, moist, slippery diet with honey thick liquids. eat with small bites and drink in small slips and do eating/drinking activities in upright position (10) Hypothyroidism: -Continue levothyroxine (11) DVT prophylaxis: -On Coumadin Discharge Diagnosis Hypoxia, Bronchitis, Ischemic cardiomyopathy, Chronic atrial fibrillation, NSVT (nonsustained ventricular tachycardia), anticoagulated on coumadin, Type 2 diabetes mellitus without current prison use of insulin with complications Subjective Patient has been able to make urine. no chest pain. no shortness of breath. no palpitations. no abdomen pain. Daughter at bedside explained the hospital course and discharge plans Physical Exam Constitutional: comfortable Eyes: PERRL, conjunctivae normal, anicteric sclerae EOM intact bilaterally ENMT: external ear and nose normal, oropharynx normal Neck: trachea midline, no thyromegaly normal visual inspection Respiratory: normal respiratory effort, lungs clear to auscultation Cardiovascular: Rate/Rhythm: regular rate and + irregularly irregular Gastrointestinal (Abdomen): normal bowel sounds, soft, nontender, no hepatosplenomegaly Musculoskeletal: Head/Neck/Chest: normocephalic and head atraumatic Extremities: + lower leg abnormality (right knee stump) Neurologic: PERRL, EOMI, accommodation nl, no face palsy, no dysarthria CN's II-XI intact bilaterally Psychiatric: Orientation: alert and cooperative Results & Data Vital Signs (Past 12 Hours) Vital Signs Temp Pulse Resp BP Pulse Ox 11/16/18 10:53 36.5 C 79 16 139/72 98 11/16/18 07:11 36.5 C 80 18 166/72 H 100 11/16/18 04:54 36.5 C 82 20 148/52 H 100
--- NOTE | 2018-11-16 14:20 | Discharge Summary ---
Date of Service November 16, 2018 Admission HPI Per Admitting Provider 88-year-old male who presents the ED with shortness of breath. Patient reports his symptoms began last evening and acutely worsened this morning. Daughter is the bedside who provides some history. She reports that she noted her father to be very short of breath while having breakfast this morning. He also has had a cough productive for thick white sputum. No fevers or chills. He denies chest pain. No lightheadedness, dizziness, diaphoresis, syncopal events. Appetite has been poor for some time however weight has been stable. Patient denies abdominal pain, nausea, vomiting, diarrhea. No urinary symptoms. In the ED, work-up is essentially unremarkable however when patient ambulated he desaturated to 75% on room air. Patient improved with 2 L of oxygen via nasal cannula. He was also given nebulizer treatment, IV doxycycline, IV methylprednisolone, and IVF. Admission Exam Per Admitting Provider Constitutional: + thin; no acute distress Vitals as above Eyes: PERRL, conjunctivae normal, anicteric sclerae ENMT: external ear and nose normal, oropharynx normal Respiratory: normal respiratory effort; no respiratory distress Auscultation: + diminished lung sounds Cardiovascular: Rate/Rhythm: + tachycardic; not irregularly irregular Vessels: normal peripheral pulses Extremities: no edema Gastrointestinal (Abdomen): normal bowel sounds, soft, nontender, no hepatosplenomegaly Musculoskeletal: no cyanosis or clubbing, extremities motor strength 5/5 S/P right BKA Skin: no rashes, warm and dry Neurologic: PERRL, EOMI, accommodation nl, no face palsy, no dysarthria Psychiatric: Orientation: alert and oriented x 3 Affect: + depressed affect Principal Diagnosis Hypoxia, Bronchitis, Ischemic cardiomyopathy, Chronic atrial fibrillation, NSVT (nonsustained ventricular tachycardia), anticoagulated on coumadin, Type 2 diabetes mellitus without current [place] [facility] use of insulin with complications Discharge Exam Constitutional comfortable Eyes PERRL, conjunctivae normal, anicteric sclerae EOM intact bilaterally ENMT external ear and nose normal, oropharynx normal Neck trachea midline, no thyromegaly normal visual inspection Respiratory normal respiratory effort, lungs clear to auscultation Cardiovascular Rate/Rhythm: regular rate and + irregularly irregular Gastrointestinal (Abdomen) normal bowel sounds, soft, nontender, no hepatosplenomegaly Musculoskeletal Head/Neck/Chest: normocephalic and head atraumatic Extremities: + lower leg abnormality (right knee stump) Neurologic PERRL, EOMI, accommodation nl, no face palsy, no dysarthria CN's II-XI intact bilaterally Psychiatric Orientation: alert and cooperative Discharge Data Allergies Allergy/AdvReac Type Severity Reaction Status Date / Time pioglitazone Allergy Unknown vision Verified 11/14/18 11:24 problem Consultations 11/14/18 15:43 ED Decision to Admit Stat 11/14/18 19:22 Consult Case Management - Discharge Planning Routine Consult Palliative Care Routine 11/16/18 07:53 Consult Cardiology Routine Ordered Studies 11/14/18 12:38 CT angio chest PE protocol Stat Hospital Course (1) Hypoxia: (2) Bronchitis: -Patient had hypoxia and shortness of breath for which he came to the hospital for on 11/15/18 and lung imaging without infiltrates -In the ED, CXR, CTA chest, labs all unremarkable however when patient ambulated he desaturated to 75% on room air, this improved with 2 L of oxygen via nasal cannula -Also on presentation, patient had significant wheezing and rhonchi which improved after nebulizer and IV steroids -Patient was started on Doxycycline and was weaned off oxygen by 11/16/18 and no additional oxygen needs at rest or with ambulation. The initial episode of hypoxia at home may be from bronchitis or perhaps a transient mucous plug that could have cleared given patient's history of aspiration. -Patient should take Doxycycline for 6 more days. Patient should have minced, moist, slippery diet with honey thick liquids. eat with small bites and drink in small slips and do eating/drinking activities in upright position -11/20/2018 1:00 PM Provider Franklin Horan MD Department Family Practice [facility] (3) Abnormal urinalysis: -Possible contamination -No urinary symptoms -Follow culture (4) Chronic atrial fibrillation: -on admission on 11/14/18, Heart rates currently elevated, likely secondary to missed morning medications and use of nebulizer treatment -continue home doses of metoprolol and digoxin, monitor and make adjustments as needed -continue Coumadin -heart rate are better controlled since being on medical regan from 11/14/18 and transferred to telemetry for closer monitoring of heart rates -an episode of non sustained ventricular tachycardia of 10 beat run noted on AM of 11/16/18 for which patient is asymptomatic. [facility] Cardiology Dr. Valverde ordered one dose of IV Lasix 20 mg but does not recommend any changes to current cardiac medications -Patient should follow up with primary care doctor and [facility] Cardiology clinic after discharge (5) Ischemic cardiomyopathy: -EF 35% -Appears euvolemic on exam -Does not take routine diuretics at home -can consider repeat echocardiogram if hypoxia does not resolved with current treatments (6) DM type 2 (diabetes mellitus, type 2): Type 2 diabetes mellitus without current [place] [facility] use of insulin with complications -HbA1c 7.5 -on admission day, patient had glucose 304. Patient received 10 units of Lantus -continue sliding scale insulin and titrate insulin as needed -hold home Hold oral agents at this time right leg Prosthesis -right leg stump -patient ambulates with right leg prosthesis (7) CAD (coronary artery disease): -Appears stable, no reports of chest pain -Continue Plavix, statin, beta-cathy (8) Hypertension: -BP mildly elevated, likely secondary to missed morning medications -Continue lisinopril, metoprolol (9) Dysphasia: -Chronic, as per patient's daughter he has had chronic aspiration problems in the past -Patient should have minced, moist, slippery diet with honey thick liquids. 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 with complications Total Time Total Time Spent Total Time Spent (In Minutes): 40 minutes Total Time Includes: Examination of the Patient, Discharge Planning, Medication Reconciliation and Communication With Other Providers Discharge Plan Discharge Items Patient Disposition: Home - Self-Care Reason For Visit: HYPOXIA,BRONCHITIS Discharge Diagnosis: Hypoxia, Bronchitis, Ischemic cardiomyopathy, Chronic atrial fibrillation, NSVT (nonsustained ventricular tachycardia), anticoagulated on coumadin, Type 2 diabetes mellitus without current terminal supervisor use of insulin with complications Condition: Fair Discharge Goals: Improve disease control Activity: Resume your previous activity Non-emergency contact: Primary Care Provider Call non-emergency contact if: you have any medication questions Follow-up/Referrals: Kimberley Reid MD [Primary Care Provider] - Diet: Heart Healthy Liquid Consistency: Honey thick Diet Comment: minced, moist diet Addtl Provider Instructions: Patient had hypoxia and shortness of breath for which he came to the hospital for on 11/15/18 and lung imaging without infiltrates. Patient was started on Doxycycline and was weaned off oxygen by 11/16/18 The episode of hypoxia may be from bronchitis or perhaps a transient mucous plug that could have cleared given patient's history of aspiration. Patient should take Doxycycline for 6 more days. Patient should have minced, moist, slippery diet with honey thick liquids. eat with small bites and drink in small slips and do eating/drinking activities in upright position 11/20/2018 1:00 PM Provider Franklin Horan MD Department Family [facility] 11/26/2018 5:00 PM Provider [facility] Department Pharmacy, [facility] Patient also has chronic atrial fibrillation and an episode of non sustained ventricular tachycardia of 10 beat run noted on AM of 11/16/18 for which patient is asymptomatic. [facility] Card[facility] Dr. Valverde ordered one dose of IV Lasix 20 mg but does not recommend any changes to current cardiac medications Patient should follow up with primary care doctor and [facility] Cardiology clinic after discharge Prescriptions: New doxycycline hyclate 100 mg Capsule 100 mg PO DAILY@0600,1800 6 Days Qty: 12 RF: 0 Continued atorvastatin 80 mg tablet 80 mg PO DAILY RF: 0 clopidogrel 75 mg tablet 75 mg PO QAM RF: 0 levothyroxine 75 mcg tablet 75 mcg PO QAM RF: 0 tamsulosin 0.4 mg capsule 0.4 mg PO DAILY RF: 0 ferrous sulfate [iron] 325 mg (65 mg iron) Tablet 325 mg PO DAILY RF: 0 glimepiride 4 mg tablet 8 mg PO QAM RF: 0 warfarin [Jantoven] 5 mg Tablet 2.5 mg PO SUTUTHSA RF: 0 warfarin [Jantoven] 5 mg Tablet 5 mg PO MOWEFR RF: 0 digoxin [Digitek] 125 mcg tablet 125 mcg PO DAILY RF: 0 metformin 500 mg tablet extended release 24 hr 500 mg PO DAILY RF: 0 lisinopril 2.5 mg tablet 2.5 mg PO DAILY RF: 0 finasteride 5 mg tablet 5 mg PO QAM RF: 0 cholecalciferol (vitamin D3) [Vitamin D3] 1,000 unit Capsule 1,000 unit PO DAILY RF: 0 Tradjenta 5 mg tablet 5 mg PO DAILY RF: 0 magnesium oxide 400 mg magnesium Tablet 400 mg PO DAILY RF: 0 metoprolol succinate 50 mg tablet extended release 24 hr 50 mg PO DAILY RF: 0 Stand-Alone Forms: [facility] Discharge Orders: Discharge Order (Routine); Ordered 11/16/18 Ordered By: Chaim Jones Admission Data Admit Date/Time: 11/14/18 16:34 Attending Provider: Chaim Jones Admit Provider: Chaim Jones Primary Care Provider: Kimberley Reid Other Providers: Tom Almeida ; Kimi Barreto Charles C. Service: Telemetry
[2018-11-16 14:26] VITALS: BP 108/65
== END 2018-11-16 15:15 | disposition home health service (06) | DRG 203 ==
LOC: ED 10:28 → 4E 16:34 → 2N 11-15 10:39